=== PATIENT | female | born 1955 ===

== ENCOUNTER 2018-07-24 14:40 | Emergency (ER) | payer OTHER ==
[~2018-07-24] VITALS: Ht 165.1 cm; Wt 66.2 kg
[~2018-07-24 14:40] MED LIST: CEFUROXIME500 MG PO; FLONASE16 GM NS; LEVSIN/SL0.125 MG SL; SENOKOT8.6 MG PO; ZANTAC300 MG PO
[2018-07-24] MEDS ORDERED: NORVASC2.5 M1 (15:10)
== END 2018-07-24 18:40 | disposition home or self-care (01) ==
LOC: ER 14:40
DX: S80.01XA Contusion of right knee, initial encounter (principal); G89.11 Acute pain due to trauma; R51 Headache; W18.09XA Striking against other object with subsequent fall, initial encounter; Y93.89 Activity, other specified; Y92.520 Airport as the place of occurrence of the external cause; Y99.8 Other external cause status